=== PATIENT | male | born 1990 | race Caucasian/White ===

== ENCOUNTER 2016-11-28 20:35 | Emergency (ER) | payer SELFPAY ==
[~2016-11-28] VITALS: Ht 180.3 cm; Wt 118.2 kg
[~2016-11-28 20:35] MED LIST: NORCO 325 MG-51 TAB PO; PHENERGAN 25 TA25 MG PO; ROBAXIN 50500 MG/TAB PO
[2016-11-28 20:37] VITALS: BP 142/84; PULSE 108; TEMP 98.3
[2016-11-28] MEDS ORDERED: XANAX 0.5MG0.5 MG PO (20:41)
[2016-11-28] MEDS ORDERED: ADDERALL XR30 MG (20:41)
[2016-11-28] MEDS ORDERED: MOBIC15 MG PO (20:41)
[2016-11-28] MEDS ORDERED: FLEXERIL 1010 MG/TAB PO (20:42)
[2016-11-28] MEDS ORDERED: MOTRIN 800800 MG/TAB PO (21:45)
== END 2016-11-28 22:08 | disposition home or self-care (01) ==
LOC: COL.ER 20:35
DX: S63.502A Unspecified sprain of left wrist, initial encounter (principal); S43.402A Unspecified sprain of left shoulder joint, initial encounter; F41.9 Anxiety disorder, unspecified; F32.9 Major depressive disorder, single episode, unspecified; F90.9 Attention-deficit hyperactivity disorder, unspecified type; F17.210 Nicotine dependence, cigarettes, uncomplicated; W18.30XA Fall on same level, unspecified, initial encounter; Y92.009 Unspecified place in unspecified non-institutional (private) residence as the place of occurrence of the external cause